=== PATIENT | female | born 1940 | race Caucasian/White ===

== ENCOUNTER 2019-09-24 11:01 | Emergency (ER) | payer BC, MEDICARE ==
[2019-09-24 12:06] LABS: Bilirubin Negative (Negative); Blood, Urine Trace (Negative); Clarity Clear (Clear); Glucose, Urine (Dipstick) Negative (Negative); Ketone, Urine Negative (Negative); Leukocyte Trace (Negative); Nitrite Negative (Negative); Protein, Urine (Dipstick) Negative (Neg-Trace); Urobilinogen 0.2 mg/dL (Less than 2); pH, Urine 7.5 (5.0-9.0)
[2019-09-24 12:08] LABS: Hemoglobin 11.2 g/dL (12.0-16.0); Mean Corpuscular HGB CONC 29.3 g/dL (32.0-36.0); Mean Corpuscular Hemoglobin 27.8 pg (27.0-31.0); Mean Corpuscular Volume 94.8 fL (78.0-98.0); Mean Platelet Volume 7.1 fL (7.4-10.4); Platelet Count 251 thou/uL (130-400); RBC Distribution Width 15.3 % (11.5-14.5); Red Blood Cell (RBC) Count 4.02 mill/uL (4.20-5.40); White Blood Cell (WBC) Count 7.7 thou/uL (4.8-10.8)
[2019-09-24 12:10] LABS: Bacteria/HPF Rare-Few HPF (None Seen); Mucous/LPF Few LPF (<2+); RBC/HPF 0-3 HPF (0-3); Squamous Epithelial 0-3 HPF (0-3); WBC/HPF 0-3 HPF (0-3)
[2019-09-24 12:17] LABS: #Eosinphils 0.1 thou/uL (0.0-0.7); #Lymphocytes 1.5 thou/uL (1.20-3.40); #Monocytes 0.6 thou/uL (0.11-0.59); #Neutrophils 5.5 thou/uL (1.40-6.50); %Basophils 0.6 % (0.0-1.0); %Lymphocytes 19.1 % (21.0-51.0); %Neutrophils 71.2 % (42.0-75.0); Anion Gap 14 mmol/L (10-20); BUN (Urea Nitrogen) 12 mg/dL (9.8-20.1); Calc. Creatinine Clearance 0 mL/min (70-130); Calcium 9.5 mg/dL (7.8-10.44); Carbon Dioxide 28 mmol/L (23-31); Chloride 102 mmol/L (98-107); Estimated GFR-MDRD 75; Glucose 117 mg/dL (83-110); Potassium 4.1 mmol/L (3.5-5.1); Sodium 140 mmol/L (136-145)
[2019-09-24 12:30] LABS: Platelet Morphology Comment Appears Adequate; RBC Morphology Normal
--- NOTE | 2019-09-24 16:11 | RAD ---
CHEST TWO VIEWS: 09/24/19 Comparison is made with a 11/29/06 study. Mild cardiomegaly is present but no worse than before. There is no vascular congestion or edema. No e ffusions are seen. The lungs are clear. IMPRESSION: No acute finding. POS: HOME
--- NOTE | 2019-09-24 17:24 | CT ---
CT ABDOMEN AND PELVIS WITHOUT CONTRAST: 09/24/[address] of the abdomen and pelvis was done without oral and IV contrast. The lung bases are clear e xcept for some minor atelectasis. A small hiatal hernia was noted. The liver, spleen, pancreas, adren al glands, kidneys, and abdominal aorta showed no acute findings within the limitations of a noncontr ast study. There was no sign of renal calculi, ureteral calculi, or obstruction. 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 Its significance is doubtful. The bowel shows extensive diverticulosis, particularly in the sigmoid colon. There were no findings o f diverticulitis, obstruction, or other inflammatory changes. No free air or free fluid was seen. CT of the pelvis showed no pelvic masses, fluid collections or inflammatory changes. Extensive degene rative changes are present in the spine. The patient has had prior vertebroplasties in the lower thor acic upper lumbar region. IMPRESSION: 1. No evidence of urinary tract pathology to explain pain. 2. Diverticulosis but no signs of diverticulitis. Report called to Dr. Vincent at 1205 on 09/24/19. POS: HOME
== END 2019-09-24 12:30 | disposition home or self-care (01) ==
LOC: BURERS 11:01
DX: R10.32 Left lower quadrant pain (principal); R06.00 Dyspnea, unspecified; R10.811 Right upper quadrant abdominal tenderness; K21.9 Gastro-esophageal reflux disease without esophagitis; I48.91 Unspecified atrial fibrillation; I50.9 Heart failure, unspecified; F41.9 Anxiety disorder, unspecified; Z79.01 Long term (current) use of anticoagulants
CPT/HCPCS: 71046; 74176; 80048; 81003; 81015; 85025

== ENCOUNTER 2019-09-27 09:57 | Inpatient (IN) | payer MEDICARE ==
[2019-09-27] MEDS ORDERED: Ondansetron PF 4 MG/2 ML Vial ONE (10:44)
[2019-09-27 11:18] LABS: #Basophils 0.1 thou/uL (0.0-0.2); #Eosinphils 0.1 thou/uL (0.0-0.7); #Lymphocytes 1.6 thou/uL (1.20-3.40); #Monocytes 0.7 thou/uL (0.11-0.59); #Neutrophils 6.2 thou/uL (1.40-6.50); %Basophils 0.7 % (0.0-1.0); %Eosinophils 1.3 % (0.0-10.0); %Lymphocytes 18.4 % (21.0-51.0); %Monocytes 8.1 % (0.0-10.0); %Neutrophils 71.4 % (42.0-75.0); Hemoglobin 11.2 g/dL (12.0-16.0); Mean Corpuscular Hemoglobin 28.1 pg (27.0-31.0); Mean Corpuscular Volume 93.7 fL (78.0-98.0); Mean Platelet Volume 7.3 fL (7.4-10.4); Platelet Count 280 thou/uL (130-400); Red Blood Cell (RBC) Count 3.98 mill/uL (4.20-5.40); White Blood Cell (WBC) Count 8.7 thou/uL (4.8-10.8)
[2019-09-27 11:18] LABS: Bilirubin Negative (Negative); Blood, Urine Trace (Negative); Clarity Clear (Clear); Glucose, Urine (Dipstick) Negative (Negative); Ketone, Urine Negative (Negative); Leukocyte Trace (Negative); Nitrite Negative (Negative); Protein, Urine (Dipstick) Negative (Neg-Trace); Urobilinogen 0.2 mg/dL (Less than 2); pH, Urine 6.5 (5.0-9.0)
[2019-09-27] MEDS ORDERED: Piperacillin/Tazobactam 4.5 GM VIAL ONE (11:29)
[2019-09-27] MEDS ORDERED: Sodium Chloride 0.9% 100 ML ONE (11:29)
[2019-09-27 11:31] LABS: ALT (SGPT) Less than 7 U/L (8-55); AST (SGOT) 13 U/L (5-34); Albumin 4.1 g/dL (3.4-4.8); Alkaline Phosphatase 66 U/L (40-110); Anion Gap 15 mmol/L (10-20); BUN (Urea Nitrogen) 14 mg/dL (9.8-20.1); Bilirubin, Total 0.5 mg/dL (0.2-1.2); Calc. Creatinine Clearance 0 mL/min (70-130); Calcium 9.3 mg/dL (7.8-10.44); Carbon Dioxide 24 mmol/L (23-31); Chloride 104 mmol/L (98-107); Estimated GFR-MDRD 70; Globulin 3.2 g/dL (2.4-3.5); Glucose 114 mg/dL (83-110); Protein, Total 7.3 g/dL (6.0-8.3); Sodium 139 mmol/L (136-145)
[2019-09-27 11:35] LABS: Bacteria/HPF Rare-Few HPF (None Seen); RBC/HPF 0-3 HPF (0-3); Squamous Epithelial 0-3 HPF (0-3); WBC/HPF 0-3 HPF (0-3)
[2019-09-27] MEDS ORDERED: Lorazepam 0.5 MG TAB ONE (11:45)
[2019-09-27 11:53] LABS: CKMB 2.4 ng/mL (0-6.6)
[2019-09-27] MEDS ORDERED: HYDROcodone/Acetaminophen 5/325 mg Tablet PO PRN (16:02)
[2019-09-27] MEDS ORDERED: Ondansetron PF 4 MG/2 ML Vial IVP PRN (16:02)
[2019-09-27] MEDS ORDERED: Dextrose 5 %-0.45 % NaCl 1,000 ML IV SCH (16:15)
[2019-09-27] MEDS: Piperacillin/Tazobactam 3.375 GM in Sodium Chloride 0.9% 100 ML IVPB SCH ×2 (17:51→23:31)
[2019-09-27] MEDS: HYDROcodone/Acetaminophen 5/325 mg Tablet PO PRN (17:52)
[2019-09-27] MEDS ORDERED: Promethazine DM 6.25-15mg/5ml 120 ML BOT PO PRN (19:02)
--- NOTE | 2019-09-27 20:29 | HP ---
CHIEF COMPLAINT: Abdominal pain. HISTORY OF PRESENT ILLNESS: This ia an 79-year-old female, patient of Dr. Louise, who presented to the [facility] Emergency Department earlier today with complaint of a 3-day history of abdominal pain, predominantly located to the left lower quadrant and accompanied by nausea and loose stools. Other symptoms that she has had include malaise, myalgias, and intermittent cough with some shortness of breath. She was seen three days ago for similar symptoms and did have imaging, which included a chest x-ray on 09/24/2019, showing no acute findings and a CT scan of the abdomen and pelvis on 09/24/2019 showing no evidence of urinary tract pathology to explain the pain and diverticulosis, but no signs of diverticulitis. Due to the patient's recurring symptoms, she presented back to the ER today. Lab work obtained was largely reassuring with no notable leukocytosis or elevation of her lactic acid; lipase was within normal limits as well. The patient has been COVID swabbed and she was started on IV Zosyn for presumed diverticulitis secondary to focal area of abdominal pain and lack of resolution of her symptoms. PAST MEDICAL HISTORY: Includes atrial fibrillation, congestive heart failure, anxiety with depression, and gastroesophageal reflux disease. PAST SURGICAL HISTORY: Includes Watchman procedure, pacemaker, bilateral shoulder surgery, lumbar surgery, total hysterectomy, cholecystectomy, appendectomy, and bilateral knee replacements. SOCIAL HISTORY: The patient denies smoking, EtOH, or illicit drug use. She states her has smoked at home around her for many years though. She does live alone at this point. FAMILY HISTORY: Noncontributory. ALLERGIES: NO KNOWN DRUG ALLERGIES. CURRENT HOME MEDICATIONS: Include, 1. Potassium chloride 10 mEq daily. 2. Magnesium oxide 250 mg daily. 3. Sotalol 120 mg b.i.d. 4. Sertraline 100 mg daily. 5. Pantoprazole 40 mg daily. 6. Furosemide 40 mg daily. 7. Lorazepam 1 mg q.8 hours p.r.n. 8. Buspirone 10 mg b.i.d. 9. Aspirin 81 mg daily. 10. Eliquis 5 mg b.i.d. REVIEW OF SYSTEMS: GENERAL: The patient denies fever. EARS, NOSE, AND THROAT: Denies sore throat, nasal drainage, or congestion. CARDIOVASCULAR: She denies chest pain or palpitations. RESPIRATORY: Complains of intermittent cough and intermittent shortness of breath. GASTROINTESTINAL: The patient complains of left lower quadrant abdominal pain and loose stools. Also having nausea. GENITOURINARY: Denies dysuria. MUSCULOSKELETAL: She has chronic joint pain. DERM: Denies rash. NEUROLOGIC: Denies headache. LABORATORY DATA: White blood cell count is 8.7, hemoglobin is 11.2, hematocrit 37.3, platelets 280. D-dimer normal at 0.42. Sodium 139, potassium 4.0, BUN is 14, creatinine 0.79, GFR 70, glucose 114, lactic acid 1.1. AST is 13, ALT is less than 7. BNP was 161.1. Troponin 0.034. Lipase 25. Urine did have trace blood and trace leukocyte esterase. Imaging, as per HPI. No repeat imaging done today. PHYSICAL EXAMINATION: VITAL SIGNS: Temperature is 98.1, pulse is 80, respiratory rate is 20, oxygen is 95% on room air, and blood pressure is 141/81. GENERAL: The patient is alert and oriented, in no acute distress. HEAD, EYES, EARS, NOSE, AND THROAT: Normocephalic and atraumatic. Pupils are equal, round, and reactive to light. Extraocular muscles are intact bilaterally. She has moist mucous membranes. NECK: Supple with no lymphadenopathy. CARDIOVASCULAR: Regular rate and rhythm with normal S1 and S2. No murmurs appreciated. RESPIRATORY: She has diminished breath sounds, but clear to auscultation with no respiratory distress. ABDOMEN: Mildly tender to palpation to the left lower quadrant. No rebound or guarding. No masses. EXTREMITIES: No clubbing, cyanosis, or edema. SKIN: No rashes. She has well-healed scars over the anterior aspect of bilateral knees. She has a peripheral IV access to the right upper extremity. NEUROLOGIC: Nonfocal with cranial nerves 2 through 12 grossly intact. ASSESSMENT AND PLAN: 1. Diverticulitis. The patient has been started on IV Zosyn, which will be continued. We will repeat her CBC tomorrow morning and provide pain control. We will add a probiotic secondary to the patient's loose stools and current antibiotic therapy. We will also provide Zofran for nausea. We will follow up cultures. 2. Atrial fibrillation. We will resume the patient's usual medications for this. She is rate controlled and hemodynamically stable. 3. Chronic congestive heart failure. We will resume the patient's Lasix. She is euvolemic by exam. 4. Anxiety with depression. We will resume the patient's benzodiazepine taken on a p.r.n. basis and her SSRI along with BuSpar. 5. Gastroesophageal reflux disease. We will resume the patient's proton pump inhibitor. 6. Cough. The patient's lung presley are clear by exam. She has been totally tested and is currently on contact/respiratory precautions. We will resume these pending results of her COVID test. 7. Prophylaxis. The patient as noted is already on Eliquis and pantoprazole. 8. Code status is full. 9. Disposition, plan to discharge the patient home with improvement of her abdominal pain and finalization of her cultures. Job ID: [id number]
[2019-09-27] MEDS: Potassium Chloride 10 MEQ TAB PO SCH (21:16)
[2019-09-27] MEDS: busPIRone HCl 5 MG TAB PO SCH (21:16)
[2019-09-27] MEDS: Sotalol HCl 80 MG TAB PO SCH (21:17)
[2019-09-27] MEDS: Magnesium Oxide 400 MG TAB PO SCH (21:18)
[2019-09-27] MEDS: Apixaban 5 MG TAB PO SCH (21:18)
[2019-09-27] MEDS: Lorazepam 0.5 MG TAB PO PRN (21:19)
[2019-09-27] MEDS ORDERED: Promethazine HCl 25 MG/ML VIAL ONE (21:48)
[2019-09-27] MEDS ORDERED: guaiFENesin 100 MG/5 ML UDCUP PO PRN (23:15)
[2019-09-28] MEDS: Acetaminophen 325 MG TAB PO PRN (00:18)
[2019-09-28] MEDS: Ondansetron ODT 4 MG TAB SL PRN ×2 (03:08→22:41)
[2019-09-28] MEDS: Piperacillin/Tazobactam 3.375 GM in Sodium Chloride 0.9% 100 ML IVPB SCH ×3 (05:14→17:22)
[2019-09-28] MEDS: HYDROcodone/Acetaminophen 5/325 mg Tablet PO PRN (05:15)
[2019-09-28 05:20] LABS: ALT (SGPT) 8 U/L (8-55); AST (SGOT) 13 U/L (5-34); Albumin 3.8 g/dL (3.4-4.8); Alkaline Phosphatase 64 U/L (40-110); Anion Gap 13 mmol/L (10-20); BUN (Urea Nitrogen) 11 mg/dL (9.8-20.1); Bilirubin, Total 0.4 mg/dL (0.2-1.2); Calc. Creatinine Clearance 66 mL/min (70-130); Calcium 8.7 mg/dL (7.8-10.44); Carbon Dioxide 25 mmol/L (23-31); Chloride 105 mmol/L (98-107); Estimated GFR-MDRD 64; Globulin 2.9 g/dL (2.4-3.5); Glucose 109 mg/dL (83-110); Potassium 3.9 mmol/L (3.5-5.1); Protein, Total 6.7 g/dL (6.0-8.3); Sodium 139 mmol/L (136-145)
[2019-09-28 05:32] LABS: #Basophils 0.1 thou/uL (0.0-0.2); #Eosinphils 0.3 thou/uL (0.0-0.7); #Lymphocytes 1.8 thou/uL (1.20-3.40); #Monocytes 0.9 thou/uL (0.11-0.59); #Neutrophils 4.3 thou/uL (1.40-6.50); %Basophils 1.1 % (0.0-1.0); %Eosinophils 3.6 % (0.0-10.0); %Lymphocytes 24.7 % (21.0-51.0); %Monocytes 11.9 % (0.0-10.0); %Neutrophils 58.7 % (42.0-75.0); Hemoglobin 10.3 g/dL (12.0-16.0); Mean Corpuscular HGB CONC 30.1 g/dL (32.0-36.0); Mean Corpuscular Hemoglobin 28.2 pg (27.0-31.0); Mean Corpuscular Volume 93.9 fL (78.0-98.0); Mean Platelet Volume 7.4 fL (7.4-10.4); Platelet Count 217 thou/uL (130-400); RBC Distribution Width 15.2 % (11.5-14.5); Red Blood Cell (RBC) Count 3.66 mill/uL (4.20-5.40); White Blood Cell (WBC) Count 7.3 thou/uL (4.8-10.8)
[2019-09-28] MEDS: Sotalol HCl 80 MG TAB PO SCH ×2 (08:59→20:21)
[2019-09-28] MEDS: Apixaban 5 MG TAB PO SCH ×2 (09:01→20:24)
[2019-09-28] MEDS: busPIRone HCl 5 MG TAB PO SCH ×2 (09:01→20:23)
[2019-09-28] MEDS: Furosemide 20 MG TAB PO SCH (09:01)
[2019-09-28] MEDS: Saccharomyces boulardii 250 MG CAP PO SCH (09:01)
[2019-09-28] MEDS: Aspirin 81 mg Enteric Coated Tablet PO SCH (09:01)
[2019-09-28] MEDS: Lorazepam 0.5 MG TAB PO PRN ×2 (09:05→18:27)
[2019-09-28] MEDS: Magnesium Oxide 400 MG TAB PO SCH (20:23)
[2019-09-28] MEDS: Potassium Chloride 10 MEQ TAB PO SCH (20:23)
[2019-09-29] MEDS: HYDROcodone/Acetaminophen 5/325 mg Tablet PO PRN ×2 (00:09→09:45)
[2019-09-29] MEDS: Lorazepam 0.5 MG TAB PO PRN ×2 (03:27→12:30)
[2019-09-29] MEDS: Acetaminophen 325 MG TAB PO PRN (03:27)
[2019-09-29] MEDS: Piperacillin/Tazobactam 3.375 GM in Sodium Chloride 0.9% 100 ML IVPB SCH ×3 (05:16→11:46)
[2019-09-29] MEDS: Sotalol HCl 80 MG TAB PO SCH (08:13)
[2019-09-29] MEDS: busPIRone HCl 5 MG TAB PO SCH (08:16)
[2019-09-29] MEDS: Saccharomyces boulardii 250 MG CAP PO SCH (08:16)
[2019-09-29] MEDS: Aspirin 81 mg Enteric Coated Tablet PO SCH (08:16)
[2019-09-29] MEDS: Apixaban 5 MG TAB PO SCH (08:16)
[2019-09-29] MEDS: Furosemide 20 MG TAB PO SCH (08:16)
[2019-09-29 13:36] VITALS: BP 112/69; TEMP 97.8
--- NOTE | 2019-09-30 07:56 | DIS ---
DATE OF ADMISSION: 09/27/2019 DATE OF DISCHARGE: 09/29/2019 ADMISSION DIAGNOSIS: Diverticulitis with diarrhea. SECONDARY DIAGNOSES: Chronic atrial fibrillation, chronic congestive heart failure, anxiety with depression, gastroesophageal reflux disease, and chronic cough. PROCEDURES: None. HOSPITAL COURSE: This 79-year-old female, who presented to the [facility] Emergency Department with complaints of ongoing abdominal pain focal to the left lower quadrant, accompanied by loose stools. She reported having shortness of breath in conjunction with this abdominal pain and has had a chronic cough, for which she has been referred for evaluation to Pulmonology, Dr. Rdz, whom she is to follow up within 2 weeks. She had been seen 3 days prior to admission in the emergency department with the same symptoms and had imaging, which included a CT scan of the abdomen and pelvis showing no evidence of urinary tract pathology to explain pain along with diverticulosis, but no signs of diverticulitis. Her chest x-ray at that time showed no acute finding. Secondary to the patient's lack of improvement and poor p.o. intake, stool cultures were obtained and she was started on IV Zosyn empirically. In addition to this, she was swabbed for COVID and subsequently admitted to the floor under isolation precautions. The patient's labs and vitals remained stable throughout. She had no leukocytosis, remained afebrile and on room air. Her COVID testing did come back negative. Her stool culture results showed to be negative for C diff, Campylobacter and E coli with a preliminary stool culture showing many normal enteric sam present. Her abdominal pain improved as did her oral intake. Secondary to the patient's improvement in normal labs, she has minimal to discharge back to her home setting at this time. DISPOSITION: She may follow up with her primary care provider, Dr. Louise next week. She is also scheduled to follow up with Dr. Rdz in approximately 2 weeks, which I believe is on October 16, 2019. DISCHARGE MEDICATIONS: Three new medications will be: 1. Cipro 500 mg b.i.d. x7 days. 2. Flagyl 500 mg three times a day x7 days. 3. Bentyl 20 mg q.6 hours p.r.n. GI upset. She will resume her usual home medications otherwise, which include: 1. Eliquis 5 mg b.i.d. 2. BuSpar 10 mg b.i.d. 3. Lorazepam 1 mg q.8 hours p.r.n. 4. Furosemide 40 mg daily. 5. Pantoprazole 40 mg daily. 6. Sotalol 120 mg b.i.d. 7. Magnesium oxide 250 mg daily. 8. Potassium chloride 10 mEq daily. 9. Aspirin 81 mg daily. 10. Calcium carbonate/vitamin D3 b.i.d. 11. Probiotic one capsule daily. 12. Sertraline 200 mg daily. Job ID: [id number]
== END 2019-09-29 13:30 | disposition home or self-care (01) | DRG 392 ==
LOC: BURERS 09:57 → UNDOADMIN 11:30 → BURMED 11:30
PROVIDERS: ADMIT Family Medicine; ATTEND Family Medicine
DX: K57.92 Diverticulitis of intestine, part unspecified, without perforation or abscess without bleeding (principal); I48.91 Unspecified atrial fibrillation; I50.9 Heart failure, unspecified; F41.9 Anxiety disorder, unspecified; F32.9 Major depressive disorder, single episode, unspecified; K21.9 Gastro-esophageal reflux disease without esophagitis; Z96.653 Presence of artificial knee joint, bilateral; Z95.0 Presence of cardiac pacemaker; Z79.01 Long term (current) use of anticoagulants; Z90.710 Acquired absence of both cervix and uterus; Z90.49 Acquired absence of other specified parts of digestive tract
CPT/HCPCS: 36415; 71046; 74176; 80048; 80053; 81003; 81015; 82553; 83605; 83690; 83880; 84484; 85025; 85379; 87045; 87046; 87324; 87427; 87449; 94760; 96361; 96365; 96375; J2405; J2543; J2550; J3490; Q0162; U0002